=== PATIENT | female | born 1950 | race Caucasian/White ===

== ENCOUNTER → 2018-01-13 | Outpatient (CLI) | payer OTHER ==
[2018-01-13 10:08] LABS: HEMATOCRIT 44.5 % (37.0-47.0); HEMOGLOBIN 14.5 gm/dL (12.0-15.0); MCH 27.7 pg (26.0-34.0); MCHC 32.5 g/dL (28.0-37.0); MCV 85.1 fL (80.0-100.0); RBC 5.23 mil/uL (4.20-5.00); RDW 13.6 % (10.5-14.5); WBC 9.7 thou/uL (4.0-11.0)
[2018-01-13 10:21] LABS: ALBUMIN 1.3 g/dL (3.4-5.0); CALCIUM 9.5 mg/dL (8.5-10.1); CREATININE 0.4 mg/dL (0.6-1.0); TOTAL PROTEIN 4.8 g/dL (6.4-8.2)
== END ==
LOC: CAT 09:36
PROVIDERS: Internal Medicine Infectious Disease
DX: I48.91 Unspecified atrial fibrillation (principal); J98.11 Atelectasis; M47.894 Other spondylosis, thoracic region

== ENCOUNTER 2018-01-17 06:57 | Observation (INO) | payer OTHER ==
[~2018-01-17] VITALS: Ht 162.6 cm; Wt 87.1 kg
--- NOTE | ~2018-01-17 | D ---
[facility] [place] [address] DISCHARGE SUMMARY Name: LOI QUILES Room #: 215-P [facility] MBharati#: [id number] Admission: 01/17/18 Attend Phys: Jhoan Blackwell MD Discharge: 01/18/18 Date of : 50 Report #: [id number] THIS REPORT FOR: //name// CC: JERI Blackwell Physician staff DATE OF SERVICE: 01/18/2018 FINAL DIAGNOSES: 1. Atrial fibrillation, status post ablation procedure. 2. Hypertension. 3. Diabetes mellitus. 4. Gastroesophageal reflux disease. 5. Hypothyroidism. HOSPITAL COURSE: Please see the original H and P by Dr. Blackwell for full details. She presented with symptomatic atrial fibrillation, electively undergoing an ablation procedure. This was performed by Dr. Blackwell on 01/17/2018. She has remained stable overnight. The rhythm remains sinus. She is given instructions by Dr. Blackwell regarding medications and followup. FINAL DISPOSITION: She will continue with Eliquis 5 mg twice a day, Lipitor, hydrochlorothiazide, metoprolol, metformin, and she is to resume flecainide 50 mg twice a day. <ELECTRONICALLY SIGNED> By: Subhash Moura MD 01/19/18 [id number] Subhash Moura MD /nuno
--- NOTE | ~2018-01-17 | P ---
[facility] [place] [address] PROCEDURE REPORT Name: LOI QUILES Room #: 215-P [facility] M.R.#: [id number] Admission: 01/17/18 Attend Phys: Jhoan Blackwell MD Discharge: Date of : 50 Report #: [id number] THIS REPORT FOR: //name// CC: JERI Blackwell Physician staff DATE OF SERVICE: 01/17/2018 PROCEDURE: AFib ablation. HISTORY OF PRESENT ILLNESS: The patient is a 67-year-old female with history of paroxysmal atrial fibrillation, who is here for AFib ablation. ANESTHESIA: The patient underwent general anesthesia. No anesthesia related complications. DESCRIPTION OF PROCEDURE: The patient underwent informed consent. Discussed the details of the procedure including the risks, which include but not limited to bleeding, vascular damage, cardiac perforation, stroke, NV. She understood these risks and is willing to proceed. As such, the patient was brought to the EP Laboratory in a fasting and nonsedated state. In the EP Lab, she was in atrial fibrillation with rapid ventricular response. When they initiated anesthesia, she was noted to have low blood pressures and required Ernst-Synephrine. As such, I recommended that she undergo a cardioversion prior to the ablation. She was monitored for about 10 minutes and her blood pressures stabilized. As such, the patient was prepped and draped in a sterile fashion. I obtained access to the right femoral vein x 3, placing an 8-Cypriot, 9-Cypriot and 7-Cypriot short sheaths using the modified Seldinger technique. Next, under fluoroscopy, I placed a decapolar catheter easily in the coronary sinus and an ice catheter in the right atrium. I created a detailed 3D geometry of the left atrium using CARTO sound. There was evidence of a left common ostium and right superior and right inferior pulmonary veins. The patient had evidence of a very thick interatrial septum with this, but there was a nice thin fossa ovalis. I was able to obtain transseptal access easily and advanced the SL1 sheath into the left atrium. I then used a [employer] Lasso catheter to register geometry in the left atrium and then the CartoSound and the CT scan were merged. Before transseptal, the patient was systemically heparinized. Next, I exchanged my SL1 sheath for the cryo sheath and placed into the left atrium. Next, I performed 2 freezes in the left superior pulmonary vein of the common ostium. The vein demonstrated slowing of the PV potentials, but remained connected. I then turned my attention to the left inferior branch of the left common vein and this resulted in diminishment of the pulmonary vein potentials. I then went up to the left superior branch again and performed an additional freeze and after this, it appeared that there was isolation of the left common. I then turned my attention to the right superior pulmonary vein and performed [address] [id number] PROCEDURE REPORT Name: LOI QUILES Room #: 215-P [facility] Yary Mae#: [id number] Admission: 01/17/18 Attend Phys: Jhoan Blackwell MD Discharge: Date of : 50 Report #: [id number] initially a 50-second freeze, but the temperatures were not very good and I repositioned my catheter and performed two 4-minute freezes with evidence of isolation. I then turned my attention again to the right inferior veins and I performed two 4-minute freezes and this vein was also isolated. I therefore went into the left common ostium and using the Achieve, advanced this into the denisha, the left superior branch and the left inferior branch and performed pacing at high voltage to ensure that this entire ostium was isolated and there was evidence of entrance and exit block. As such, all veins were successfully isolated. The procedure was therefore concluded. I pulled my ablation balloon and sheath into the right atrium using intracardiac ultrasound and verified there was no pericardial effusion. The patient then received systemic protamine and then when the ACT was within acceptable range, catheters and sheaths were pulled. Hemostasis was obtained and the patient awoke neurologically and hemodynamically intact. No complications and no significant bleeding. CONCLUSIONS: Successful isolation of the left common ostium with evidence of entrance and exit block throughout the superior and inferior branches of this vessel. Successful isolation of the right superior and right inferior pulmonary veins. By: [id number] Jhoan Blackwell MD /nt
[2018-01-17] MEDS ORDERED: SYNTHROID50 MCG PO (07:27)
[2018-01-17] MEDS ORDERED: LOPRESSOR50 PO ×2 (07:28)
[2018-01-17] MEDS ORDERED: ELIQUIS5 MG PO (07:29)
[2018-01-17] MEDS ORDERED: PROTONIX40 M1 PO (07:29)
[2018-01-17] MEDS ORDERED: HYDROCHLOROTHIA25 M2 PO (07:30)
[2018-01-17] MEDS ORDERED: SENIOR TABS1 EACH PO (07:30)
[2018-01-17] MEDS ORDERED: METFORMIN HCL500 MG PO (07:31)
[2018-01-17] MEDS ORDERED: LIPITOR 20 MG T20 M1 PO (07:32)
[2018-01-17] MEDS ORDERED: FLONASE 0.05%50 MCG NASAL (07:32)
[2018-01-17 07:38] VITALS: BP 129/68
[2018-01-17 08:13] LABS: ABSOLUTE NEUTROPHILS 8.1 thou/uL (1.4-8.2); BASOPHILS 0.4 % (0.0-2.0); HEMATOCRIT 46.8 % (37.0-47.0); HEMOGLOBIN 15.4 gm/dL (12.0-15.0); LYMPHOCYTES 21.5 % (24.0-44.0); MCH 27.8 pg (26.0-34.0); MCV 84.3 fL (80.0-100.0); MONOCYTES 7.1 % (1.0-8.0); PLATELET COUNT 196 thou/uL (150-400); RBC 5.55 mil/uL (4.20-5.00); WBC 11.6 thou/uL (4.0-11.0)
[2018-01-17 08:21] LABS: CALCIUM 9.5 mg/dL (8.5-10.1); CREATININE 1.3 mg/dL (0.6-1.0); POTASSIUM 3.5 mmol/L (3.5-5.1)
[2018-01-17 08:27] LABS: TOTAL BILIRUBIN 0.9 mg/dL (<0.1-1.0); TOTAL PROTEIN 7.5 g/dL (6.4-8.2)
[2018-01-17 08:33] LABS: APTT 26.7 Seconds (24.5-32.8); PROTIME 10.2 Seconds (9.3-11.4)
[2018-01-17 13:24] VITALS: BP 120/56
[2018-01-17 15:30] VITALS: BP 118/58
[2018-01-17 19:45] VITALS: BP 107/60
[2018-01-17 23:43] VITALS: BP 125/63
[2018-01-18 03:52] VITALS: BP 108/54
[2018-01-18 07:43] VITALS: BP 125/67
[2018-01-18] MEDS ORDERED: FLECAINIDE ACET50 M2 PO (09:33)
[2018-01-18 10:50] VITALS: BP 125/67
[2018-01-18 11:27] VITALS: BP 125/67
== END 2018-01-18 11:30 | disposition home or self-care (01) ==
LOC: CATH 06:57 → 2N 13:42
PROVIDERS: Internal Medicine Cardiovascular Disease
DX: I48.91 Unspecified atrial fibrillation (principal); I10 Essential (primary) hypertension; E66.9 Obesity, unspecified; E11.9 Type 2 diabetes mellitus without complications; K21.9 Gastro-esophageal reflux disease without esophagitis; E03.9 Hypothyroidism, unspecified; Z98.890 Other specified postprocedural states; Z87.891 Personal history of nicotine dependence
CPT/HCPCS: 62110; 62900; 65020; 65040; 65043; 70005